=== PATIENT | male | born 1950 | race Caucasian/White ===

== ENCOUNTER 2016-05-07 12:42 | Day surgery (SDC) | payer MEDICARE, OTHER ==
--- NOTE | ~2016-05-07 | OP ---
Record Of Operation [facility] [address] [place]. [address] NAME: DIANNA NELSON : 46 STATUS : REG [facility] [place] PAT#: [id number] AGE: 65 ADM/REG DATE : 05/07/16 MR#: [id number] REPORT SERV DATE: 05/07/16 DICTATED BY: ERICA GUARDADO DATE: 05/07/16 REPORT STATUS : Draft TRANSCRIBED BY: MODL DATE: 05/07/16 DATE OF PROCEDURE: 05/07/2016 PREOPERATIVE DIAGNOSIS: Possible severe balanitis possible urethral and/or penile mass. POSTOPERATIVE DIAGNOSES: 1. Apparent urethral tumor, urethral stricture, urethral meatal mass. 2. Apparent urinary tract infection. PROCEDURE PERFORMED: Urethral dilation, cystoscopy, trocar suprapubic tube placement, cold cup biopsies of distal urethral mucosa, biopsy of urethral meatus and fulguration, Mason catheter placement. SURGEON: Erica Guardado M.D. ANESTHESIA: General. ESTIMATED BLOOD LOSS: 20 mL or so. INDICATIONS: This is a 65-year-old white male, recently presenting to the office with a very indurated glans penis with erythematous changes and abnormal-looking tissue at the urethral meatus. We are planning cystoscopy, possible urethral biopsy, penile biopsy, and suprapubic tube placement. Risks of infection, bleeding, failure, need for further surgery, etc. were reviewed. PROCEDURE IN DETAIL: The patient was taken to the operating room and underwent a general anesthetic. He was placed in the lithotomy position on the table, and his external genitalia were sterilely prepped and draped. A close inspection of the penis revealed the glans penis to be distinctly abnormally indurated throughout. Right at the vega of the glans or just proximal to the vega, the penile tissue felt completely normal. The urethral meatus was obscured by what looked like necrotic tissue, and there was a little bit of abnormal tissue around the meatus visible externally as well which looked viable. There was no identifiable urethral orifice. I inserted a 5-Nigerien [place] catheter into the area of the urethral orifice and managed to advance it up into the bladder without too much difficulty. A guidewire was placed through this and also advanced into the bladder. A series of [place]-tipped dilators were used to dilate the urethra from 8-Nigerien to 22- Nigerien. The 20-Nigerien cystoscope sheath with 30-degree lens was then inserted under direct vision adjacent to the guidewire, which was left in place. The distal centimeter or so of the urethra had a lot of shaggy, abnormal-looking tissue that looked like urethral tumor. Again just proximal to the level of the glans, the urethra looked completely normal. Normal urethra was encountered all the way to the prostate. The prostate was mildly enlarged. Had mild lateral lobe occlusion and a mildly elevated bladder neck. Visibility in the bladder was difficult because the urine was quite debris laden. The bladder was seen distended. I drained the bladder and sent urine for C and S. I will have to rinse the bladder several times to improve visibility. I really never saw anything that resembled tumor or any suspicious areas within the bladder. Single orifices were seen bilaterally. The bladder Record Of [place] [address] [place]. [address] NAME: OMARDIANNA : 46 STATUS : REG [facility] [place] PAT#: [id number] AGE: 65 ADM/REG DATE : 05/07/16 MR#: [id number] REPORT SERV DATE: 05/07/16 DICTATED BY: ERICA GUARDADO DATE: 05/07/16 REPORT STATUS : Draft TRANSCRIBED BY: MODL DATE: 05/07/16 was then distended using saline. An area was selected a couple of centimeters proximal to the symphysis pubis in the midline and a spinal needle was inserted there and advanced into the dome/anterior wall region of the bladder without difficulty. A spinal needle was removed and an 11 blade knife was used to make a short skin incision at the site of the spinal needle insertion. The Lindsay 16-Nigerien introducer was then advanced through this incision and into the bladder under direct vision using the cystoscope. A 16-Nigerien Mason catheter was advanced through the introducer and left indwelling. It looked like this entered the bladder again in the dome, anterior wall area. The balloon was inflated, and the bladder was drained completely and the catheter was left to gravity drainage. It was secured to the skin using a 2-0 silk suture. The cystoscope was then withdrawn back into the urethra and specifically back into the distal urethra just proximal to the meatus. Four cold cup biopsies were taken of distinctly abnormal two necrosis/tumor material. It did not appear that a fulguration was necessary. The scope was withdrawn all the way from the urethral meatus and the [place] catheter was placed back into the bladder over the guidewire and the guidewire was removed. I used a 15 blade knife to take biopsies of the urethral meatus on both the right and left sides. Following the biopsies, this area of the glans was just simply fulgurated for hemostasis. The guidewire was then replaced back up into the bladder, and I elected to place a 16-Nigerien [place] tip catheter over the guidewire and advanced this all the way into the bladder without difficulty leaving us both the suprapubic tube and urethral Mason catheter in place. A sterile Neosporin, Vaseline gauze, and a clean wrap dressing was applied to the urethral meatus and penis. He tolerated the procedure well and was taken to recovery in stable condition. JOSE/HARRISL Erica Guardado M.D. / [id number] CC: Yani Henderson M.D.
[~2016-05-07 12:42] MED LIST: GLUCPH8 PO; LOTE40 PO; NORV25 PO; SEPTRA DS1 TAB PO; SYMBICORT 160/41 INH INH; TOPXL50 PO
[2016-05-07 13:22] LABS: BASOPHILS 0.3 %; BASOPHILS ABSOLUTE 0.04 10/3/uL (0.0-0.16); EOSINOPHILS 4.2 %; EOSINOPHILS ABSOLUTE 0.58 10/3/uL (0.0-0.53); HEMATOCRIT 46.3 % (40.0-51.0); HEMOGLOBIN 15.7 g/dL (13.6-17.8); IMMATURE GRANULOCYTES 0.6 %; IMMATURE GRANULOCYTES ABSOLUTE 0.08 10/3/uL (0.0-0.11); LYMPHOCYTES 29.4 %; LYMPHOCYTES ABSOLUTE 4.05 10/3/uL (0.67-4.30); MEAN CORPUS HGB CONC 33.9 g/dL (32.0-36.0); MEAN CORPUSCULAR HEMOGLOB 29.7 pg (26.0-34.0); MEAN CORPUSCULAR VOLUME 87.7 fL (80-100); MONOCYTES ABSOLUTE 0.83 10/3/uL (0.21-1.20); NEUTROPHILS 59.5 %; NEUTROPHILS ABSOLUTE 8.21 10/3/uL (2.02-8.40); PLATELET COUNT 260 10/3/uL (150-400); RBC DISTRIBUTION WIDTH 14.5 % (12.0-16.0); RED CELL COUNT 5.28 10/6/uL (4.7-6.1); WHITE BLOOD CELLS 13.8 10/3/uL (4.5-10.5)
[2016-05-07 13:23] LABS: MANUAL DIFF NO %
[2016-05-07 13:31] LABS: PARTIAL THROMBO TIME 26.4 SEC (22.5-37.2); PROTIME (NOT ORD) 13.4 SEC (12.0-14.5)
[2016-05-07 13:33] LABS: BUN (BLOOD UREA NITROGEN) 17 MG/DL (6-23); CALCIUM, SERUM 9.5 MG/DL (8.5-10.4); CHLORIDE, SERUM 102 MMOL/L (96-112); CO2 (CARBON DIOXIDE) 26 MMOL/L (24-34); GFR AFRICAN AMERICAN 90 ML/MIN (>=60); GFR NON AFRICAN AMERICAN 78 ML/MIN (>=60); GLUCOSE, SERUM 135 MG/DL (60-99); POTASSIUM, SERUM 4.8 MMOL/L (3.5-5.3); SODIUM, SERUM 137 MMOL/L (135-148)
== END 2016-05-07 18:37 | disposition home or self-care (01) ==
LOC: SDC 12:42
PROVIDERS: Urology
PROC: 0TBD8ZX Excision of Urethra, Via Natural or Artificial Opening Endoscopic, Diagnostic (ICD-10-PCS; principal; 2016-05-07 13:45)
PROC: 0T7D8ZZ Dilation of Urethra, Via Natural or Artificial Opening Endoscopic (ICD-10-PCS; 2016-05-07 13:45)
DX: C68.0 Malignant neoplasm of urethra (principal); J44.9 Chronic obstructive pulmonary disease, unspecified; I10 Essential (primary) hypertension; E11.9 Type 2 diabetes mellitus without complications; G47.33 Obstructive sleep apnea (adult) (pediatric); Z79.2 Long term (current) use of antibiotics; Z79.891 Long term (current) use of opiate analgesic; Z79.84 Long term (current) use of oral hypoglycemic drugs; Z79.899 Other long term (current) drug therapy
CPT/HCPCS: 71010; 80048; 82962; 85025; 85610; 85730; 87086; 88305; 93005; C1726; C1758; J1170; J2250; J2405; J2710; J3010

== ENCOUNTER 2016-05-13 08:38 | Day surgery (SDC) | payer MEDICARE, OTHER ==
--- NOTE | ~2016-05-13 | OP ---
Record Of Operation [facility] [address] [place]. 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 PROCEDURE PERFORMED: Partial penectomy. SURGEON: Erica Guardado MD. ANESTHESIA: General. ESTIMATED BLOOD LOSS: 10 mL. INDICATIONS: This is a 65-year-old white male, recently presenting to the office with some abnormal tissue around the urethral meatus and a very indurated glans penis. Transurethral biopsies of the distal urethra last week as well as biopsies of the urethral meatus revealed poorly differentiated invasive squamous cell carcinoma. We are planning partial penectomy. Risks of infection, bleeding, failure, need for further surgery, etc., were reviewed. PROCEDURE IN DETAIL: The patient was taken to the operating room and underwent a general anesthetic. He was placed in a supine position on the operating table and his external genitalia were sterilely prepped and draped. The penis was closely examined and he had necrotic material occluding the urethral meatus. The glans was very indurated, but no overt tumor was noted there. Just proximal to the glans, the tissue on the shaft of the penis as well as the skin was much more normal other than some mild penile edema. We placed sterile surgical glove over the glans and held on with tape. The site was selected about 2.5 to 3 cm proximal to the glans for amputation. A [place] drain was placed around the base of the penis for hemostasis. A circumferential skin incision was made roughly 2.5 to 3 cm proximal to the glans and the penile skin was very edematous. Hemostasis was obtained with electrocautery. When the skin was pulled back exposing the deeper tissues of the penis, a guillotine-style amputation was performed using a #15 blade knife through both corpora cavernosa and carried downward until the corpora spongiosum was identified. We left at least 0.5 cm of corpora spongiosum protruding beyond the cut surfaces of the cavernosum. This too was incised and amputated. The urethra at this point looked normal. The specimen was handed off to Pathology and ultimately it was determined that all margins were negative. The urethra was spatulated dorsally for a short distance. We recognized that we had excellent excess of penile skin and another approximately 1.5 to 2 cm skin specimen was removed using a circumferential skin incision with a #15 blade knife and then the Bovie device. Four horizontal mattress sutures using 2-0 Vicryl were used to close the corpora. This area was then oversewn with four simple interrupted sutures of 2-0 Vicryl. The dorsal vessels were ligated using a 3-0 Vicryl tie. The tourniquet was then released. Any other further hemostasis necessary was obtained with the Bovie device. We then reapproximated the skin of the ventral aspect of the penis to the neomeatus using interrupted sutures of 3-0 Record Of Operation [address] [address] NAME: DIANNA NELSON : 46 STATUS : [facility] PAT#: [id number] AGE: 65 ADM/REG DATE : 05/13/16 MR#: [id number] REPORT SERV DATE: 05/13/16 DICTATED BY: ERICA GUARDADO DATE: 05/13/16 REPORT STATUS : Draft TRANSCRIBED BY: CHANDRA DATE: 05/13/16 chromic. When this had been completed, a couple of interrupted 3-0 chromic sutures were placed just superior to this approximating the penile skin edges and then the remainder of the incision was closed with a running 3-0 chromic suture. The cosmetic result looked good. Bleeding was very minimal. A penile block was administered using 10 mL of plain 0.5% Marcaine. A penile dressing was then applied using Neosporin, Vaseline gauze, and Melissa wrap dressing. I should mention that a Mason catheter was placed into the urethra after the amputation portion of the procedure, so a 16-Turkish Mason catheter was left indwelling to gravity drainage as well. I did not detect any inguinal adenopathy, nor did I detect any scrotal, testicular, or cord structure abnormalities. A sterile scrotal support dressing was then applied. The patient tolerated the procedure well. There were no complications at the conclusion of the procedure. He was taken to recovery in stable condition. DS/MODL Erica Guardado M.D. / [id number] CC: Yani Henderson M.D.
== END 2016-05-13 16:50 | disposition home or self-care (01) ==
LOC: SDC 08:38
PROVIDERS: Urology
PROC: 0VBSXZZ Excision of Penis, External Approach (ICD-10-PCS; principal; 2016-05-13 10:00)
DX: C60.8 Malignant neoplasm of overlapping sites of penis (principal); I10 Essential (primary) hypertension; E11.9 Type 2 diabetes mellitus without complications; J44.9 Chronic obstructive pulmonary disease, unspecified; J45.909 Unspecified asthma, uncomplicated; Z79.84 Long term (current) use of oral hypoglycemic drugs; Z79.2 Long term (current) use of antibiotics; Z79.899 Other long term (current) drug therapy; Z98.890 Other specified postprocedural states
CPT/HCPCS: 82962; 88305; 88309; 88331; 88332; A9270-GY; C1781; J0690; J1170; J2250; J2405; J3010